=== PATIENT | female | born 1985 | race African-American/Black ===

== ENCOUNTER 2017-08-20 18:14 | Emergency (ER) | payer MEDICARE, OTHER ==
[~2017-08-20] VITALS: Ht 160 cm; Wt 81.2 kg
[~2017-08-20 18:14] MED LIST: BENTYL10 MG PO; COREG CR10 MG PO; PROZAC20 MG; XANAX0.25 MG; ZOFRAN ODT4 MG SL
[2017-08-20] MEDS ORDERED: KEFLEX500 MG PO (18:39)
[2017-08-20] MEDS ORDERED: TAMIFLU75 MG PO (18:39)
== END 2017-08-20 19:38 | disposition home or self-care (01) ==
LOC: ER 18:14
DX: R50.9 Fever, unspecified (principal); J00 Acute nasopharyngitis [common cold]; F17.210 Nicotine dependence, cigarettes, uncomplicated
CPT/HCPCS: 87400; 99282

== ENCOUNTER 2017-09-28 12:11 | Emergency (ER) | payer MEDICARE, OTHER ==
[~2017-09-28] VITALS: Ht 160 cm; Wt 59.0 kg
[~2017-09-28 12:11] MED LIST changes: +KEFLEX500 MG PO; +TAMIFLU75 MG PO
--- OUTSIDE RECORDS SUMMARY | 2017-09-28 12:15 | XMS REPORT | Continuity of Care Document ---
Author Author [facility] Organization [facility] Address [address] [place] [address] Phone Unavailable Care Team Providers Care Cold Mill Inspector Name Role Phone NONSTAFF PCP Unavailable Insurance Providers Guarantor Natty Gupta Address [address] [place] [address] Email [email or web address] Payer [employer] Policy Number [id number] Subscriber's Name Natty Gupta Relationship 18 Self / Same As Patient Effective Date 16 Payer [employer] Policy Number [id number] Subscriber's Name Natty Gupta Relationship 18 Self / Same As Patient Group Name UNEMPLOYED Effective Date 15 Advance Directives Directive Response Recorded Date/Time Does the patient have an advance directive? No 06/15/14 12:27pm If yes, is advance directive on file with [facility]? No 06/15/14 12:27pm If not on file with [facility] will patient provide a copy? No 06/15/14 12:27pm Do you have a Directive to Physician? No 08/20/17 6:31pm Do you have a Medical Power of Medical Superintendent? No 08/20/17 6:31pm Do you have an out of hospital Do Not Resuscitate Order? No 08/20/17 6:31pm Do you have any special needs we should be aware of? No 08/20/17 6:31pm Do you have a support person here with you today? Yes 08/20/17 6:31pm Did patient receive Notice of Privacy Practices? Yes 08/20/17 6:31pm Did patient receive patient rights and responsibilities? Yes 08/20/17 6:31pm Problems No problem information available. Medications Current Home Medications Medication Dose Units Route Directions Days Qty Instructions Start Date Alprazolam (Xanax) 0.25 Mg Tablet Carvedilol (Coreg Cr*) 10 Mg Capcr 10 Mg Oral Daily Cephalexin Monohydrate (Keflex) 500 Mg Capsule 500 Mg Oral Every 6 Hours for Urinary Frequency 7 Days 28 Tab 08/20/17 Oseltamivir Phosphate (Tamiflu) 75 Mg Cap 75 Mg Oral Daily 5 Days 10 Cap 08/20/17 Past Home Medications Medication Directions Ordered Status Dicyclomine Hcl (Bentyl) 10 Mg Capsule, 20 Mg Oral Every 6 Hours as needed for Pain Discontinued Fluoxetine Hcl (Prozac) 20 Mg Capsule, 20 Mg Daily Discontinued Ondansetron (Zofran Odt) 4 Mg Tab.rapdis, 4 Mg Sublingual Every 6 Hours as needed for Nausea And Vomiting Discontinued Social History Smoking Status Start Date Stop Date Current some day smoker Hospital Discharge Instructions No hospital discharge instruction information available. Plan of Care Discharge Date 08/20/17 7:38pm Disposition HOME, SELF-CARE Condition at Discharge Stable Instructions/Education Provided Dysuria - Female Flu - Adult Forms Provided Work/School Excuse Prescriptions See Medication Section Referrals Clifford Little Order Date: Call for an appointment Functional Status No functional status information available. Allergies, Adverse Reactions, Alerts No known allergies. Immunizations No immunization information available. Vital Signs Acute Vital Signs Vital Response Date/Time Height 5 ft 3 in 08/20/2017 6:18pm Weight 179 lb 08/20/2017 6:18pm Body Mass Index 31.7 kg/m^2 08/20/2017 6:18pm Results Laboratory Results Test Name Result Units Flags Reference Collection Date/Time Result Date/ Time Comments Influenza Virus Types A,B Antigen NEGATIVE NEGATIVE 08/20/2017 6:20pm 08/20/2017 7:06pm Procedures No procedure information available. Encounters Encounter Location Arrival/Admit Date Discharge/Depart Date Attending Provider Departed Emergency Room [facility] 08/20/17 6:14pm 7:38pm ULYSSES SAMS MD
[2017-09-28] MEDS ORDERED: HYOSCYAMINE 0.375 MG TABCR PO STA (12:25)
[2017-09-28] MEDS ORDERED: ONDANSETRON HCL 4 MG ORAL DISINTEGRATING TAB PO ONE (12:30)
[2017-09-28] MEDS ORDERED: LOPERAMIDE HCL 2 MG CAP PO ONE (12:30)
[2017-09-28 12:44] LABS: BASOPHILS % 0.2 % (0.0-1.0); EOSINOPHILS # (AUTO) 0.1 (0.0-0.4); EOSINOPHILS % 0.4 % (0.0-6.0); HEMATOCRIT 43.7 % (34.2-44.1); HEMOGLOBIN 14.5 g/dL (12.0-16.0); LYMPHOCYTES # (AUTO) 0.7 (1.0-3.2); LYMPHOCYTES % 4.9 % (18.0-39.1); MEAN CORPUSCULAR HEMOGLOBIN 31.5 pg (28-32); MEAN CORPUSCULAR HGB CONC 33.2 g/dL (31-35); MEAN CORPUSCULAR VOLUME 94.8 fL (81-99); MONOCYTES # (AUTO) 0.7 (0.2-0.8); MONOCYTES % 5.5 % (4.4-11.3); NEUTROPHILS # (AUTO) 11.7 (2.1-6.9); NEUTROPHILS % 88.4 % (38.7-80.0); PLATELET COUNT 233 x10e3/uL (140-360); RED BLOOD COUNT 4.61 x10e6/uL (3.6-5.1); RED CELL DISTRIBUTION WIDTH 14.3 % (11.7-14.4)
[2017-09-28 12:45] LABS: BILIRUBIN,URINE NEGATIVE (NEGATIVE); KETONES,URINE NEGATIVE (NEGATIVE); LEUKOCYTE ESTERASE ,URINE NEGATIVE (NEGATIVE); NITRITE,URINE NEGATIVE (NEGATIVE); PROTEIN,URINE DIPSTICK NEGATIVE (NEGATIVE); URINE UROBILINOGEN 0.2 mg/dL (0.2 - 1)
[2017-09-28] MEDS ORDERED: HYOSCYAMINE 0.125 MG TAB PO ONE (12:45)
[2017-09-28] MEDS ORDERED: SIMETHICONE 80 MG CHEW PO ONE (12:50)
[2017-09-28 12:55] LABS: PREGNANCY TEST, URINE NEGATIVE (NEGATIVE)
[2017-09-28 13:00] LABS: BACTERIA,URINE RARE /HPF; CLARITY,URINE SL CLOUDY (CLEAR); COLOR,URINE YELLOW (YELLOW); EPITHELIAL CELLS,URINE FEW /LPF; MUCUS,URINE RARE (RARE)
[2017-09-28 13:04] LABS: ALANINE AMINOTRANSFERASE 12 IU/L (0-55); ALBUMIN/GLOBULIN RATIO 1.3 (0.8-2.0); ALKALINE PHOSPHATASE 93 IU/L (40-150); ANION GAP 12.8 mmol/L (8-16); BLOOD UREA NITROGEN 10 mg/dL (7-26); BUN/CREATININE RATIO 15 (6-25); CALCIUM 8.9 mg/dL (8.4-10.2); CARBON DIOXIDE 27 mmol/L (22-29); CHLORIDE 101 mmol/L (98-107); CREATININE, SERUM 0.66 mg/dL (0.57-1.11); EST GLOMERULAR FILTRATION RATE > 60 ML/MIN (60-); GLUCOSE 92 mg/dL (74-118); POTASSIUM 3.8 mmol/L (3.5-5.1); SODIUM 137 mmol/L (136-145)
--- NOTE | 2017-09-28 14:14 | Diagnostic Imaging Report ---
PROCEDURE:CHEST XRAY, X-RAY ABDOMEN, ACUTE SERIES COMPARISON:None. INDICATIONS:ABDOMINAL PAIN FINDINGS: Lung are clear. Normal mediastinum. No pleural effusion or pneumothorax. There are no dilated loops of bowel or air-fluid levels to suggest obstruction. Moderate stool. There are no masses or abnormal calcifications. There is no evidence of free air. No acute osseous abnormalities are present. CONCLUSION: Lungs are clear. No acute abdominal abnormality. Dictated by: Cal Jacobson M.D. on 09/28/2017 at 14:14 Electronically approved by: Cal Jacobson M.D. on 09/28/2017 at 14:14
[2017-09-28 14:31] VITALS: BP 110/54
== END 2017-09-28 14:57 | disposition home or self-care (01) ==
LOC: ER 12:22
DX: R10.11 Right upper quadrant pain (principal); R11.2 Nausea with vomiting, unspecified; R19.7 Diarrhea, unspecified; E86.0 Dehydration; A09 Infectious gastroenteritis and colitis, unspecified
CPT/HCPCS: 36415; 74022; 80053; 81001; 81025; 83690; 85025; 99284

== ENCOUNTER 2018-11-16 00:52 | Emergency (ER) | payer OTHER, MEDICARE ==
[~2018-11-16] VITALS: Ht 160 cm; Wt 59.0 kg
--- OUTSIDE RECORDS SUMMARY | 2018-11-16 00:55 | XMS REPORT ---
Author Author [facility] Address Unknown Phone Unavailable Care Team Providers Care Disability Specialist Name Role Phone Figueroa ZAVALA Unavailable Unavailable Problems This patient has no known problems. Allergies, Adverse Reactions, Alerts This patient has no known allergies or adverse reactions. Medications This patient has no known medications. Results Test Description Test Time Test Comments Text Results Atomic Results Result Comments ABDOMEN ACUTE SERIES W/PA CXR [place] [address] Patient Name: DOREEN GUPTA MR #: [id number] : 1985 Age/Sex: 32/F Req #: [id number] Adm Physician: Ordered by: FRANCISCO ZAVALA MD Report #: [id number] Location: ER Room/Bed: Procedure: [id number] DX/ABDOMEN ACUTE SERIES W/PA CXR Exam Date: Exam Time: REPORT STATUS: Signed PROCEDURE: CHEST XRAY, X-RAY ABDOMEN, ACUTE SERIES COMPARISON: None. INDICATIONS: ABDOMINAL PAIN FINDINGS: Lung are clear. Normal mediastinum. No pleural effusion or pneumothorax. There are no dilated loops of bowel or air-fluid levels to suggest obstruction. Moderate stool. There are no masses or abnormal calcifications. There is no evidence of free air. No acute osseous abnormalities are present. CONCLUSION: Lungs are clear. No acute abdominal abnormality. Dictated by: Claudia Jacobson M.D. on 09/28/2017 at 14:14 Electronically approved by: Claudia Jacobson M.D. on 09/28/2017 at 14:14 Dictated By: CLAUDIA JACOBSON MD 141 Transcribed By: KRISTEN on 09/28/171413 COPY TO: FRANCISCO ZAVALA MD
--- NOTE | 2018-11-16 01:15 | NUR ---
PT TO ED RM #11 FOR FURTHER EVAL; ER MD AT BEDSIDE FOR EVAL
--- NOTE | 2018-11-16 01:24 | NUR ---
FOLLOWING EVAL BY ELDA ANGEL, PT CALLED "ALAN" AND STATED, "THE DOCTOR DIDNT EVEN COME IN HERE AND SEE ME, LOOK AT ME, DO ANY LABS OR NOTHING."
== END 2018-11-16 01:54 | disposition left against medical advice (07) ==
LOC: ER 00:52
DX: R51 Headache (principal)

== ENCOUNTER 2020-01-25 13:18 | Emergency (ER) | payer MEDICARE, OTHER ==
[~2020-01-25] VITALS: Ht 160 cm; Wt 59.0 kg
--- NOTE | 2020-01-25 13:35 | Emergency Department Note ---
History of Present Illnes History of Present Illness Chief Complaint: Chest Pain History of Present Illness This is a 34 year old female arrives to the ED with complaints of chest pain and abdominal pain since July intermittently. Patient states she saw her PCP on Tuesday and return to [facility] for the same complaints this past week. Patient denies seeing a specialist in the former medical sales specialist or GI doctor for this issue.. 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 held in [facility] for 4 hr released yesterday around 0700 seen at [facility] for the same thing after she was released from care home seen by dr davis Historian: Patient Arrival Mode: Car History limited by: other Rehabilitation Program Coordinator Required: No Onset (how long ago): month(s) Radiation: Reports non-radiation Severity: mild Duration (how long): month(s) Progression: waxing and waning Chronicity: chronic Context: Reports recent illness Relieving factors: none Exacerbating factors: none Associated symptoms: Reports denies other symptoms Past Medical/Family History Physician Review I have reviewed the patient's past medical and family history. Any updates have been documented here. 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 Social History Smoking Cessation: Current every day smoker Counseling Performed: Yes Alcohol Use: Social Physically hurt or threatened: No Other Last Tetanus: OOD Review of Systems Review of Systems Constitutional: Reports no symptoms EENTM: Reports no symptoms Cardiovascular: Reports as per HPI, Reports chest pain Respiratory: Reports no symptoms Gastrointestinal: Reports no symptoms Genitourinary: Reports no symptoms Musculoskeletal: Reports no symptoms Integumentary: Reports no symptoms Neurological: Reports no symptoms Psychological: Reports no symptoms Endocrine: Reports no symptoms Hematological/Lymphatic: Reports no symptoms Physical Exam Related Data Allergies: Coded Allergies: No Known Allergies (Unverified , 09/28/17) Triage Vital Signs Vital Signs Date Time Temp Pulse Resp B/P (MAP) Pulse Ox O2 Delivery O2 Flow Rate FiO2 01/25/20 13:26 97.9 104 18 153/75 99 Room Air Vital signs reviewed: Yes Physical Exam CONSTITUTIONAL Constitutional: Present well-developed, Present well-nourished HENT HENT: Present normocephalic, Present atraumatic, Present oropharynx clear/moist, Present nose normal HENT L/R: Present left ext ear normal, Present right ext ear normal EYES Eyes: Reports PERRL, Reports conjunctivae normal NECK Neck: Present ROM normal PULMONARY Pulmonary: Present effort normal, Present breath sounds normal CARDIOVASCULAR Cardiovascular: Present regular rhythm, Present heart sounds normal, Present capillary refill normal, Present normal rate GASTROINTESTINAL Abdominal: Present soft, Present nontender, Present bowel sounds normal GENITOURINARY Genitourinary: Present exam deferred SKIN Skin: Present warm, Present dry MUSCULOSKELETAL Musculoskeletal: Present ROM normal NEUROLOGICAL Neurological: Present alert, Present oriented x 3, Present no gross motor or sensory deficits PSYCHOLOGICAL Psychological: Present mood/affect normal, Present judgement normal Results Laboratory Lab results reviewed: Yes Laboratory comments Laboratory Tests Test 01/25/20 13:36 01/25/20 13:35 White Blood Count 7.94 x10e3/uL (4.8-10.8) Red Blood Count 4.29 x10e6/uL (3.6-5.1) Hemoglobin 13.3 g/dL (12.0-16.0) Hematocrit 40.8 % (34.2-44.1) Mean Corpuscular Volume 95.1 fL (81-99) Mean Corpuscular Hemoglobin 31.0 pg (28-32) Mean Corpuscular Hemoglobin Concent 32.6 g/dL (31-35) Red Cell Distribution Width 13.6 % (11.7-14.4) Platelet Count 291 x10e3/uL (140-360) Neutrophils (%) (Auto) 52.9 % (38.7-80.0) Lymphocytes (%) (Auto) 34.3 % (18.0-39.1) Monocytes (%) (Auto) 10.1 % (4.4-11.3) Eosinophils (%) (Auto) 1.5 % (0.0-6.0) Basophils (%) (Auto) 0.8 % (0.0-1.0) Neutrophils # (Auto) 4.2 (2.1-6.9) Lymphocytes # (Auto) 2.7 (1.0-3.2) Monocytes # (Auto) 0.8 (0.2-0.8) Eosinophils # (Auto) 0.1 (0.0-0.4) Basophils # (Auto) 0.1 (0.0-0.1) Absolute Immature Granulocyte (auto 0.03 x10e3/uL (0-0.1) Sodium Level 142 mmol/L (136-145) Potassium Level 3.2 mmol/L (3.5-5.1) Chloride Level 107 mmol/L (98-107) Carbon Dioxide Level 23 mmol/L (22-29) Anion Gap 15.2 mmol/L (8-16) Blood Urea Nitrogen 6 mg/dL (7-26) Creatinine 0.69 mg/dL (0.57-1.11) Estimat Glomerular Filtration Rate > 60 ML/MIN (60-) BUN/Creatinine Ratio 9 (6-25) Glucose Level 100 mg/dL (74-118) Calcium Level 9.6 mg/dL (8.4-10.2) Total Bilirubin 1.0 mg/dL (0.2-1.2) Aspartate Amino Transf (AST/SGOT) 27 IU/L (5-34) Alanine Aminotransferase (ALT/SGPT) 22 IU/L (0-55) Alkaline Phosphatase 90 IU/L (40-150) Creatine Kinase 374 IU/L (29-168) Creatine Kinase MB 2.90 ng/mL (0-5.0) Troponin I 0.004 ng/mL (0-0.300) Total Protein 7.7 g/dL (6.5-8.1) Albumin 4.4 g/dL (3.5-5.0) Globulin 3.3 g/dL (2.3-3.5) Albumin/Globulin Ratio 1.3 (0.8-2.0) Urine Opiates Screen Negative (NEGATIVE) Urine Methadone Screen Negative (NEGATIVE) Urine Barbiturates Screen Negative (NEGATIVE) Urine Phencyclidine Screen Negative (NEGATIVE) Urine Amphetamines Screen Negative (NEGATIVE) Urine Methamphetamines Screen Negative (NEGATIVE) Urine Benzodiazepines Screen Negative (NEGATIVE) Urine Cocaine Screen Negative (NEGATIVE) Urine Cannabinoids Screen Positive (NEGATIVE) Imaging Imaging results reviewed: Yes Assessment & Plan Medical Decision Making MDM The patient presented with chest pain of uncertain etiology. Based on their history, lab analysis, EKG (which showed no evidence of ischemia or infarction), and imaging, in addition to the patient's physical exam, I see no evidence at this time for a malignant etiology for the patient's chest pain. There is no acute evidence for pulmonary embolus, acute myocardial infarction, pneumothorax, esophageal rupture, cardiac tamponade, thoracic artery dissection, or any other emergent cardiac, pulmonary or aortic pathology at this time. [Based on the nature and long duration of the patient's pain, paucity of EKG findings, and normal cardiac enzymatic blood analysis, acute coronary syndrome is exceedingly unlikely. It is highly likely that cardiac enzymes would be abnormal in chest pain of this duration if their chest pain was attributable to ACS.] [The patient also has very low risk for coronary artery disease based on their risk factor profile with no substantial risk factors (NO Age>65, NO >3 CAD risk factors +Family history of CAD, hypertension, hypercholesterolemia, diabetes, or current smoker, known CAD as defined by >50% stenosis, NO aspirin use in the past 7 days, NO severe angina having more than 2 episodes in the past 24 hours, NO ST changes >0.5mm, Normal positive cardiac biomarker).] HEART score _0-3. This patient may require cardiac stress testing on an outpatient basis and arrangements for this may be made during their follow-up visit with their primary care physician. The patient understands that at this time there is no evidence for a more malignant underlying process, but the patient also underst ands that early in the process of an illness, an emergency department workup can be falsely reassuring. Routine discharge counseling was given to the patient and the patient understands that worsening, changing, or persistent symptoms should prompt an immediate call or follow up with their primary physician or the emergency department immediately. The importance of close follow up was also discussed with the patient. Assessment & Plan Final Impression: (1) Chest pain Depart Disposition: HOME, SELF-CARE Last Vital Signs Date Time Temp Pulse Resp B/P (MAP) Pulse Ox O2 Delivery O2 Flow Rate FiO2 01/25/20 13:26 97.9 104 18 153/75 99 Room Air Home Meds Active Scripts Oseltamivir Phosphate (TAMIFLU) 75 Mg Cap, 75 MG PO DAILY for 5 Days, #10 CAP 0 Refills Prov:NISREEN NOEL AG SERVICE MANAGER 08/20/17 Cephalexin Monohydrate (KEFLEX) 500 Mg Capsule, 500 MG PO Q6H for URINARY FREQUENCY for 7 Days, #28 TAB 0 Refills Prov:NISREEN NOEL AG SERVICE MANAGER 08/20/17 Reported Medications Carvedilol* (COREG CR*) 10 Mg Capcr, 10 MG PO DAILY 10/28/14 Alprazolam (XANAX) 0.25 Mg Tablet 10/28/14 GIOVANNY DAVIS DO Jan 25, 2020 13:35
--- NOTE | 2020-01-25 14:02 | Diagnostic Imaging Report ---
EXAM: CHEST SINGLE (PORTABLE) DATE: 01/25/2020 1:44 PM INDICATION: Chest pain COMPARISON: None FINDINGS: The trachea is midline. The lungs are symmetrically expanded without evidence for large focal consolidation, pneumothorax, or significant pleural effusion. The cardiomediastinal silhouette and pulmonary vasculature are within normal limits. No acute osseous abnormality is identified. The surrounding soft tissues are unremarkable. IMPRESSION: No acute cardiopulmonary process identified. Signed by: Dr. Lamine Whipple MD on 01/25/2020 1:59 PM
[2020-01-25 14:12] LABS: BASOPHILS # (AUTO) 0.1 (0.0-0.1); BASOPHILS % 0.8 % (0.0-1.0); EOSINOPHILS # (AUTO) 0.1 (0.0-0.4); EOSINOPHILS % 1.5 % (0.0-6.0); HEMATOCRIT 40.8 % (34.2-44.1); HEMOGLOBIN 13.3 g/dL (12.0-16.0); LYMPHOCYTES # (AUTO) 2.7 (1.0-3.2); LYMPHOCYTES % 34.3 % (18.0-39.1); MEAN CORPUSCULAR HGB CONC 32.6 g/dL (31-35); MEAN CORPUSCULAR VOLUME 95.1 fL (81-99); MONOCYTES # (AUTO) 0.8 (0.2-0.8); MONOCYTES % 10.1 % (4.4-11.3); NEUTROPHILS # (AUTO) 4.2 (2.1-6.9); NEUTROPHILS % 52.9 % (38.7-80.0); PLATELET COUNT 291 x10e3/uL (140-360); RED BLOOD COUNT 4.29 x10e6/uL (3.6-5.1); RED CELL DISTRIBUTION WIDTH 13.6 % (11.7-14.4)
[2020-01-25 14:22] LABS: AMPHETAMINES SCREEN,URINE NEGATIVE (NEGATIVE); BENZODIAZEPINES SCREEN,URINE NEGATIVE (NEGATIVE); PHENCYCLIDINE SCREEN,URINE NEGATIVE (NEGATIVE)
[2020-01-25 14:31] LABS: ALANINE AMINOTRANSFERASE 22 IU/L (0-55); ALBUMIN 4.4 g/dL (3.5-5.0); ALBUMIN/GLOBULIN RATIO 1.3 (0.8-2.0); ALKALINE PHOSPHATASE 90 IU/L (40-150); ANION GAP 15.2 mmol/L (8-16); BLOOD UREA NITROGEN 6 mg/dL (7-26); BUN/CREATININE RATIO 9 (6-25); CALCIUM 9.6 mg/dL (8.4-10.2); CARBON DIOXIDE 23 mmol/L (22-29); CHLORIDE 107 mmol/L (98-107); CREATINE KINASE 374 IU/L (29-168); CREATININE, SERUM 0.69 mg/dL (0.57-1.11); EST GLOMERULAR FILTRATION RATE > 60 ML/MIN (60-); GLUCOSE 100 mg/dL (74-118); POTASSIUM 3.2 mmol/L (3.5-5.1); SODIUM 142 mmol/L (136-145)
== END 2020-01-25 15:07 | disposition home or self-care (01) ==
LOC: ER 13:45
DX: R07.9 Chest pain, unspecified (principal); R10.9 Unspecified abdominal pain; F17.210 Nicotine dependence, cigarettes, uncomplicated
CPT/HCPCS: 36415; 71045; 80053; 80307; 82550; 82553; 84484; 85025; 93005; 99283

== ENCOUNTER 2020-02-20 00:55 | Emergency (ER) | payer OTHER ==
[~2020-02-20] VITALS: Ht 160 cm; Wt 59.0 kg
--- OUTSIDE RECORDS SUMMARY | 2020-02-20 01:42 | XMS REPORT | Continuity of Care Document ---
Author Author [facility] Address Unknown Phone Unavailable Care Team Providers Care Desk Assistant Name Role Phone [employer] Information [employer] Unavailable Un available Problems Problem Status Onset Date Classification Date Reported Comments Source GERD (gastroesophageal reflux disease) Active Diagnosis 11/23/2013 [facility] UTI (lower urinary tract infection) Active Diagnosis 0 11/23/2013 [facility] Breast tenderness Active Diagnosis 11/23/2013 [facility] Cardiomyopathy, peripartum, Active Problem [facility] Hypertension Active Problem 11/23/2013 [facility] Depression with anxiety Active Problem 11/23/2013 [facility] Paranoid delusion Active Problem 11/23/2013 [facility] Dysuria Active Problem 11/23/2013 [facility] Medications Medication Details Route Status Patient Instructions Ordering Provider Order Date Source Sulfamethoxazole-TMP DS 1 tabl et Orally Active 800-160 MG Orally Twice a day Iron 11/20/2013 [facility] Coreg 1 tablet with food Orally Active 6.25 MG Orally Twice a day Iron 11/14/2013 [facility] Lisinopril 1 tablet Orally Active 5 MG Orally Once a day Iron 11/14/2013 [facility] Protonix 1 tablet PO Active 40 MG PO Once a day Iron 11/14/2013 [facility] HydrOXYzine HCl 1 tablet Orally Active 10 mg Orally Three time s a day [facility] 11/14/2013 [facility] Haloperidol Unknown NA Active Qama r [facility] Allergies, Adverse Reactions, Alerts No Known Medication Allergies Immunizations No Data Provided for This Section Results No Data Provided for This Section Pathology Reports No Data Provided for This Section Diagnostic Reports No Data Provided for This Section Consultation Notes No Data Provided for This Section Discharge Summaries No Data Provided for This Section History and Physicals No Data Provided for This Section Vital Signs Vital Sign Value Date Comments Source Weight 135.0 11/20/2013 [facility] Height 63 0 11/20/2013 [facility] Temperature Oral (F) 98.6 F 11/20/2013 [facility] Heart Rate 91 11/20/2013 [facility] Diastolic (mm Hg) 66 11/20/2013 [facility] Systolic (mm Hg) 95 11/20/2013 [facility] Encounters Location Location Details Encounter Type Encounter Number Reason For Visit Attending Provider ADM Date DC Date Status Source [facility] Care f/u on labs [id number] 11/21/19 14 11/20/2013 [facility] Procedures No Data Provided for This Section Assessment and Plan No Data Provided for This Section Plan of Care No Data Provided for This Section Social History Social History Date Source Social History ElementQualifiersDate Rep orted Schooling: . High School Diploma/GED November 20, 2013 Sexual History: . Are you currently sexually active? Ye s, Partner Preference: Heterosexual, Do you use a form of protection? Yes November 20, 2013 Tobacco Use: . Are you a: current smoker, Packs per day: 1, Do you use alternate forms of tobacco? No November 20, 2013 Use of recreational / street drugs? . Answer: Former User, What drugs did y ou use? Marijuana, Frequency: Extended period of time does not use now. stoped when she got preganet with her son November 20, 2013 Marital Status: . November 20, 2013 Caffeine intake? . Status: Yes, What type: Soft Drinks, How often? Daily November 20, 2013 New since last visit: none. November 20, 2013 Do you exercise? . Answer: Yes, Type: walking, How often ? Weekly November 20, 2013 Do you drink alcohol? . Status: Yes, Type: Beer, How often? O nce per month November 20, 2013 11/20/2013 [facility] Family History Value Date S ource QualifierDescriptionCommentDate Reported Father alive depression, heart disease, high blood pressure, alcohol abuse, mental illness November 20, 2013 Mother alive allergy, depression November 20, 2013 Children alive Comment not available November 20, 2013 11/23/2013 [facility] Advance Directives No Data Provided for This Section Functional Status No Data Provided for This Section
--- NOTE | 2020-02-20 05:46 | Emergency Department Note ---
History of Present Illnes History of Present Illness Chief Complaint: Back Pain History of Present Illness This is a 34 year old female arrived to the ED with complaints of dysuria for several months but then opted to be discharged and did not want any further care. Historian: Patient Arrival Mode: Car Woven Label Designer Required: No Onset (how long ago): month(s) Progression: unchanged Chronicity: chronic Past Medical/Family History Physician Review I have reviewed the patient's past medical and family history. Any updates have been documented here. 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 Social History Smoking Cessation: Unknown if ever smoked Alcohol Use: None Any Illegal Drug Use: No Physically hurt or threatened: No Other Last Tetanus: OOD Any Pre-Existing Lines (PICC,: No Review of Systems Review of Systems Constitutional: Reports no symptoms EENTM: Reports no symptoms Cardiovascular: Reports no symptoms Respiratory: Reports no symptoms Gastrointestinal: Reports no symptoms Genitourinary: Reports as per HPI, Reports dysuria Musculoskeletal: Reports no symptoms Integumentary: Reports no symptoms Neurological: Reports no symptoms Psychological: Reports no symptoms Endocrine: Reports no symptoms Hematological/Lymphatic: Reports no symptoms Physical Exam Related Data Allergies: Coded Allergies: No Known Allergies (Unverified , 09/28/17) Triage Vital Signs Vital Signs Date Time Temp Pulse Resp B/P (MAP) Pulse Ox O2 Delivery O2 Flow Rate FiO2 02/20/20 01:11 98.3 100 18 118/71 99 Room Air Vital signs reviewed: Yes Physical Exam CONSTITUTIONAL Constitutional: Present well-developed, Present well-nourished HENT HENT: Present normocephalic, Present atraumatic, Present oropharynx clear/ moist, Present nose normal HENT L/R: Present left ext ear normal, Present right ext ear normal EYES Eyes: Reports PERRL, Reports conjunctivae normal NECK Neck: Present ROM normal PULMONARY Pulmonary: Present effort normal, Present breath sounds normal CARDIOVASCULAR Cardiovascular: Present regular rhythm, Present heart sounds normal, Present capillary refill normal, Present normal rate GASTROINTESTINAL Abdominal: Present soft, Present nontender, Present bowel sounds normal GENITOURINARY Genitourinary: Present exam deferred SKIN Skin: Present warm, Present dry MUSCULOSKELETAL Musculoskeletal: Present ROM normal NEUROLOGICAL Neurological: Present alert, Present oriented x 3, Present no gross motor or sensory deficits PSYCHOLOGICAL Psychological: Present mood/affect normal, Present judgement normal Assessment & Plan Medical Decision Making MDM 34-year-old female arrives to the ED with complaints of several months of dysuria. Patient does have bizarre behavior and was seen by me many times in the ER and believed soon after registering. Patient midway through her history states she would like to leave and follow up with her FISHERIES DIRECTOR instead. Patient otherwise hemodynamically stable did not want to give urinalysis and was discharged home. Assessment & Plan Final Impression: (1) Dysuria Depart Disposition: HOME, SELF-CARE Last Vital Signs Date Time Temp Pulse Resp B/P (MAP) Pulse Ox O2 Delivery O2 Flow Rate FiO2 02/20/20 01:11 98.3 100 18 118/71 99 Room Air Home Meds Active Scripts Oseltamivir Phosphate (TAMIFLU) 75 Mg Cap, 75 MG PO DAILY for 5 Days, #10 CAP 0 Refills Prov:NISREEN NOEL SCHOOL DIRECTOR 08/20/17 Cephalexin Monohydrate (KEFLEX) 500 Mg Capsule, 500 MG PO Q6H for URINARY FREQUENCY for 7 Days, #28 TAB 0 Refills Prov:NISREEN NOEL SCHOOL DIRECTOR 08/20/17 Reported Medications Carvedilol* (COREG CR*) 10 Mg Capcr, 10 MG PO DAILY 10/28/14 Alprazolam (XANAX) 0.25 Mg Tablet 10/28/14 GIOVANNY DAVIS DO Feb 20, 2020 05:46
== END 2020-02-20 01:20 | disposition home or self-care (01) ==
LOC: ER 01:05
DX: R30.0 Dysuria (principal); I10 Essential (primary) hypertension; F31.9 Bipolar disorder, unspecified
CPT/HCPCS: 99282

== ENCOUNTER 2020-03-20 00:38 | Emergency (ER) | payer MEDICARE, OTHER ==
--- OUTSIDE RECORDS SUMMARY | 2020-03-20 03:34 | XMS REPORT | Continuity of Care Document ---
Author Author [employer] Address Unknown Phone Unavailable Care Team Providers Care Supervisor Files Name Role Phone [employer] Unavailable Un available Problems Problem Status Onset Date Classification Date Reported Comments Source GERD (gastroesophageal reflux disease) Active Diagnosis 11/23/2013 [facility] UTI (lower urinary tract infection) Active Diagnosis 0 11/23/2013 [facility] Breast tenderness Active Diagnosis 11/23/2013 [facility] Cardiomyopathy, peripartum, Active Problem [facility] Hypertension Active Problem 11/23/2013 [facility] Depression with anxiety Active Problem 11/23/2013 [facility] Paranoid delusion Active Problem 11/23/2013 [facility] Dysuria Active Problem 11/23/2013 [facility] Medications Medication Details Route Status Patient Instructions Ordering Provider Order Date Source Sulfamethoxazole-TMP DS 1 tabl et Orally Active 800-160 MG Orally Twice a day Iron 11/20/2013 [facility] Coreg 1 tablet with food Orally Active 6.25 MG Orally Twice a day Iron 11/14/2013 [facility] Lisinopril 1 tablet Orally Active 5 MG Orally Once a day Iron 11/14/2013 [facility] Protonix 1 tablet PO Active 40 MG PO Once a day Iron 11/14/2013 [facility] HydrOXYzine HCl 1 tablet Orally Active 10 mg Orally Three time s a day Iron 11/14/2013 [facility] Haloperidol Unknown NA Active Qama r [facility] Allergies, Adverse Reactions, Alerts No Known [...] Value Date Comments Source Weight 135.0 11/20/2013 [facility] Height 63 0 11/20/2013 [facility] Temperature Oral (F) 98.6 F 11/20/2013 [facility] Heart Rate 91 11/20/2013 [facility] Diastolic (mm Hg) 66 11/20/2013 [facility] Systolic (mm Hg) 95 11/20/2013 [facility] Encounters Location Location Details Encounter Type Encounter Number Reason For Visit Attending Provider ADM Date DC Date Status Source [facility] Care f/u on labs [id number] 11/21/19 14 11/20/2013 [facility] Procedures No Data Provided for This [...] nce per month November 20, 2013 11/20/2013 [facility] Family History Value Date S ource QualifierDescriptionCommentDate Reported Father alive depression, heart disease, high blood pressure, alcohol abuse, mental illness November 20, 2013 Mother alive allergy, depression November 20, 2013 Children alive Comment not available November 20, 2013 11/23/2013 [facility] Advance Directives No Data Provided for This Section Functional Status No Data Provided for This Section
== END 2020-03-20 00:50 | disposition left against medical advice (07) ==
LOC: ER 00:50
DX: M54.9 Dorsalgia, unspecified (principal)